=== PATIENT | female | born 1990 | race Caucasian/White ===

== ENCOUNTER 2023-12-19 19:19 | Outpatient (CLI) | payer OTHER, SELFPAY ==
--- NOTE | 2023-12-19 20:30 | P.TNLD_ITS ---
Visit Information Visit Information Date of evaluation: 12/19/23 Primary OB Provider: Angeli Mi On-call OB Provider: Angeli Mi Reason for Evaluation: Yes rupture of membranes Comments/Additional reasons for admission: Rabia Giang is a 33 year old at 38w3d by LMP and confirmed by ultrasound at 15 weeks. She has had a with CNMs only complicated by genital HSV type 1 and has been taking acyclovir since 36 weeks and has not had an outbreak since her initial outbreak years ago. Rabia called to report PROM, clear fluid, at 1800 tonight. Came in for evaluation to triage. Has felt fewer contractions since ROM - before that had may spenser baig contractions for the last few days, more than 50% of the time! After discussion of risks/benefits/options of staying for pitocin augmentation or going home for expectant management, Rabia chose to go home. Vital Signs Vital Signs: BP 131/78 HR: 68 bpm Temp: 36.9 C [facility] Medical History (Updated 12/19/23 @ 20:56 by Angeli Mi CNM, JAIDEN) Vasovagal syncope Anxiety Depression Family History (Updated 12/19/23 @ 20:58 by Angeli Mi CNM, JAIDEN) Mother Hypertension Grandfather Cancer Father Depression Sister FH: mental illness Other Osteoporosis Social History (Updated 12/19/23 @ 21:00 by Angeli Mi CNM, JAIDEN) marital status: number of children: 1 household members: spouse and children lives independently: Yes caregiver/support person: No housing: house pets and animals: Yes education level: master's degree occupational status: employed current occupational exposures/hazards: No special gemini needs: No Smoking Status: Never smoker second hand exposure: No alcohol intake: former substance use type: does not use Review of Systems Review of Systems Narrative: Negative except as mentioned in HPI. Objective Labs Labs: Amnisure positive. Evaluation Evaluation Baseline heart rate: 130 Variability: Moderate (11-25) monitor accelerations: Present Monitor Decelerations: Absent Contraction Frequency (minutes): 0 (irregular, painless) Uterine Contraction Intensity: Mild Category of Tracing: Reactive Non-invasive Membranes Rupture Test: positive Diagnosis, Plan/Disposition Final Diagnosis (1) Supervision of normal in third trimester: Status: Acute Problem details: GBS negative, Blood type O positive (2) HSV-1 infection: Status: Acute Problem details: Genital HSV: Has been taking acyclovir since 36 weeks. (3) PROM (premature rupture of membranes): Status: Acute (4) NST (non-stress test) reactive: Status: Acute Plan/Disposition Plan: Perform Amnisure. NST. Review options including active management with pitocin or expectant management either here in hospital or at home. Reviewed risks of infection both prior to and after ROM, and how those risks increase with PROM. After discussion of risks and benefits of each option, Rabia chose to go home tonight. Reviewed currently normal temperature, maternal HR and HR. Recommend taking temperature q 4-6 hours at home. Nothing in vagina until returns to hospital. Bedside ultrasound done to confirm vertex presentation. Plan to talk by phone at 0600, 12 hours after PROM, to make a plan of care. Recommend returning to hospital for pitocin if no active labor by 12-24 hours. Discharge home.
[2023-12-19 20:45] VITALS: BP 132/76
== END 2023-12-19 20:35 | disposition home or self-care (01) ==
LOC: OB 12-22 06:19
PROVIDERS: PCP Nurse Practitioner Family; Referring Provider Advanced Practice Midwife; Visit Provider Advanced Practice Midwife
DX: O42.92 Full-term premature rupture of membranes, unspecified as to length of time between rupture and onset of labor (principal); O98.513 Other viral diseases complicating pregnancy, third trimester; B00.89 Other herpesviral infection; Z3A.38 38 weeks gestation of pregnancy
CPT/HCPCS: 59025; 84112; G0378; G0379

== ENCOUNTER 2023-12-20 01:46 | Inpatient (IN) | payer OTHER, SELFPAY ==
[2023-12-20 02:25] LABS: Add Manual Diff / Slide Review NO; Basophils Absolute Auto 100 /uL (0-100); Basophils Percent Auto 1.2 % (0-2); Eosinophils Absolute Auto 100 /uL (0-450); Eosinophils Percent Auto 0.6 % (2-4); Hemoglobin 12.8 g/dL (12.0-16.0); Lymphocytes Absolute Auto 2100 /uL (1100-4500); Lymphocytes Percent Auto 18.7 % (25-40); Mean Corpuscular HGB Conc 34.5 % (30-36); Monocytes Absolute Auto 600 /uL (0-900); Monocytes Percent Auto 5.2 % (3-14); Neutrophils Absolute Auto 8200 /uL (1500-7000); Neutrophils Percent Auto 74.3 % (50-75); Platelet Count 227 X10^3/uL (150-400); Red Blood Cell Count 4.26 X10^6/uL (4.0-5.2); Red Cell Distribution Width 14.2 % (11.6-14.8); White Blood Cell Count 11.1 X10^3/uL (4.5-11.0)
[2023-12-20] MEDS: LACTATED RINGERS 1,000 ML 100 ML IV ×3 (02:44→12:42)
--- NOTE | 2023-12-20 04:01 | PM.AN.REGBLK ---
Regional Block Pre-procedure Procedure: Continuous Lumbar Epidural for L&D Attending OB provider: Angeli Mi PMH/ROS narrative: Healthy at 38+3 requesting LUCIA for labor pain. Hx: No personal or family history of anesthesia problems. PSH/Anesthesia history narrative: Previous vaginal delivery with epidural x 2. First epidural was one sided, which was replaced and was still partially effective/one sided per patient. ASA Class: II Labs: Hct 37.0 % (36-46) 12/20/23 02:15 Plt Count 227 X10^3/uL (150-400) 12/20/23 02:15 Medications: Current Medications Generic Name Dose Route Start Last Admin Trade Name Freq PRN Reason Stop Dose Admin Calcium Carbonate 1,000 mg 12/20/23 01:52 Calcium Carbonate 500 Mg Tab PO Q2HR PRN Dyspepsia Carboprost Tromethamine 250 mcg 12/20/23 01:52 Carboprost 250 Mcg/Ml Ampul IM Q90M PRN Bleeding Diphenhydramine HCl 25 mg 12/20/23 03:58 Diphenhydramine 50 Mg/Ml Vial IV 12/21/23 03:59 Q3HR PRN PRURITUS Fentanyl 50 mcg 12/20/23 01:52 Fentanyl 100 Mcg/2 Ml Inj IV Q1H PRN Pain, Moderate (4-6) Oxytocin/Lactated Ringer's 30 unit in 500 mls @ 200 mls/hr 12/20/23 01:52 Oxytocin Premix IV CONT PRN Bleeding Protocol Tranexamic Acid 1,000 mg/ 100 mls @ 600 mls/hr 12/20/23 01:52 Sodium Chloride IV NOW PRN Bleeding Lactated Ringer's 1,000 mls @ 100 mls/hr 12/20/23 02:00 Lactated Ringers IV 12/20/23 11:59 CONT SKYE Lidocaine HCl 20 ml 12/20/23 01:52 Lidocaine 1% 20 Ml INJ INTRA-OP PRN Post Delivery Methylergonovine Maleate 0.2 mg 12/20/23 01:52 Methylergonovine 0.2 Mg Tablet PO Q6HR PRN Heavy Bleeding Methylergonovine Maleate 0.2 mg 12/20/23 01:52 Methylergonovine 0.2 Mg/Ml Vial IM NOW PRN Bleeding Mineral Oil 30 ml 12/20/23 01:52 Mineral Oil 30 Ml Udc TOP PRN PRN Version Misoprostol 800 mcg 12/20/23 01:52 Misoprostol 200 Mcg Tablet WA NOW PRN Bleeding Misoprostol 400 mcg 12/20/23 01:52 Misoprostol 200 Mcg Tablet SL NOW PRN Bleeding Naloxone HCl 0.2 mg 12/20/23 01:52 Naloxone 0.4 Mg/Ml Vial IV Q2MIN PRN Opiate Reversal Naloxone HCl 0.4 mg 12/20/23 03:58 Naloxone 0.4 Mg/Ml Vial IV Q2MIN PRN Opiate Reversal Ondansetron HCl 4 mg 12/20/23 01:52 Ondansetron 4 Mg/2 Ml Inj IV Q4HR PRN Nausea And Vomiting Ondansetron HCl 4 mg 12/20/23 03:58 Ondansetron 4 Mg/2 Ml Inj IV 12/21/23 03:59 Q6HR PRN Nausea Oxytocin 10 unit 12/20/23 01:52 Oxytocin 10 Unit/Ml Vial IM NOW PRN Bleeding Allergies: Allergies Allergy/AdvReac Type Severity Reaction Status Date / Time No Known Drug Allergies Allergy Verified 12/20/23 03:30 Procedure Insertion date: 12/20/23 Insertion time: 03:35 Prep/Local: 1% lidocaine (3mL to interspace, and chlorhexadine used for skin prep) Interspace: L3/L4 Patient position: sitting Needle: 18 gauge Gaurav Loss of resistance with: saline BRUNILDA at (cm): 7 Catheter placed at SKIN (cm): 12 Catheter in SPACE (cm): 5 Insertion: No CSF, No Blood, Yes Paresthesia with insertion, No Paresthesia with injection and No Test dose reaction Initial Medications TEST DOSE time: 03:38 TEST DOSE: 1.5% lidocaine with epinephrine 1:200k (mL): 3 BOLUS DOSE time: 03:49 BOLUS DOSE (mL): 8 BOLUS DOSE med: other (8mL of infusate via epidural given as bolus dose. Prior to test and bolus doses, 0.5mL bupivacaine was placed intrathecal via CSE technique.) Infusion INFUSION: 0.125% bupivacaine and with fentanyl 2 mcg/mL Initial rate (mL/hr): 10 Subsequent interventions: 1615: Ephedrine 15mg + 10mg, zofran 4mg given IV for nausea and hypotension. Post-procedure Anesthesia date START: 12/20/23 Anesthesia time START: :25 Anesthesia date END: 12/20/23 Anesthesia time END: 13:18 Post-procedure Anesthesia Assessment: Yes CV function: HR/BP stable, Yes Resp function: RR/sat/airway adequate, Yes Post-op hydration adequate, Yes Pain control adequate, Yes Nausea & vomiting absent, Yes Temperature > 36 C and Yes Mental status appropriate
[2023-12-20 04:54] VITALS: BP 121/70
--- NOTE | 2023-12-20 05:26 | P.HPOB_ITS ---
OB HPI Date/Time Date of admission: 12/20/23 Date Patient Seen: 12/20/23 Time Patient Seen: 05:27 History of Present Condition Chief complaint: : 2 Para: 1 Estimated Date of Delivery: 12/30/23 Estimated Gestational Age (weeks): 38w4d Narrative: Rabia Giang is a 33 year old female at 38w4d by LMP and confirmed by 1st trimester ultrasound at 11 weeks. She reported PROM at 1800 which was confirmed with amnisure, and then went home for expectant management. She presented back to the labor unit at 0143 with painful contractions, was admitted at 3 cm and requested an epidural. She is now resting comfortably and sleeping. Her and MIL are with her. Rabia had an uncomplicated with CNMs. She has a history of HSV-1 genital with one outbreak at age 19. Is taking acyclovir for prophylaxis. She is GBS negative. History of Present care: good care, initiated at week # (11), number of visits (8) and pounds weight gain (24) Dating criteria: LMP confirmed by 1st trimester US Ultrasounds: normal 1st trimester US and normal mid trimester US Medical complications: other (Genital HSV-1) Preadmission Labs Blood type: O (+) positive -: Antibody screen: negative, Cystic fibrosis screen: unknown, GBS status: negative, HBsAG: negative, HIV: negative, HSV 1: unknown, HSV 2: unknown and RPR/VDLR: negative -: Chlamydia screen: not detected and Gonorrhea screen: not detected -: Rubella: immune and Varicella: immune HCT: 37.8 HCAB: negative Cell-free DNA: Declined. 1 hr GTT: 98 Prior (ies) History: : VAVB at 40 weeks, epidural, very long labor, male, 7#8oz at [facility]. Evaluation Evaluation Baseline heart rate: 120 Variability: Moderate (11-25) monitor accelerations: Present Monitor Decelerations: Late (x 1 min after epidural placed) Contraction Frequency (minutes): 2 (2-6) Status: Category ll Dilation (cm): 4 Effacement (%): 70 Dilation: 1-2 cm Effacement: 60-70% station: -2 Position of cervix: mid Consistency: medium Palacio score: 6 [facility] Medical History (Updated 12/19/23 @ 20:56 by Angeli Mi CNM, ARNP) Vasovagal syncope Anxiety Depression Family History Mother Hypertension Grandfather Cancer Father Depression Sister FH: mental illness Other Osteoporosis Social History marital status: number of children: 1 household members: spouse and children lives independently: Yes caregiver/support person: No housing: house pets and animals: Yes education level: master's degree occupational status: employed current occupational exposures/hazards: No special gemini needs: No Smoking Status: Never smoker second hand exposure: No alcohol intake: former substance use type: does not use Meds Home Medications and Allergies Allergies Allergy/AdvReac Type Severity Reaction Status Date / Time No Known Drug Allergies Allergy Verified 12/20/23 03:30 Review of Systems Review of Systems Narrative: All normal except as mentioned in HPI. OB Exam Vital signs Blood Pressure: 120/66 Pulse Rate: 72 Respiratory Rate: 16 Temperature: 98 F Objective Labs 12/20/23 02:15 Labs: Laboratory Results - last 24 hr 12/20/23 02:15 WBC 11.1 H RBC 4.26 Hgb 12.8 Hct 37.0 MCV 87.0 MCH 30.0 MCHC 34.5 RDW 14.2 Plt Count 227 Neut % (Auto) 74.3 Lymph % (Auto) 18.7 L Twiggs % (Auto) 5.2 Eos % (Auto) 0.6 L Baso % (Auto) 1.2 Neut # (Auto) 8200 H Lymph # (Auto) 2100 Twiggs # (Auto) 600 Eos # (Auto) 100 Baso # (Auto) 100 Blood Type O Positive Antibody Screen Negative Assessment and Plan Assessment and Plan Assessment and Plan narrative: at 38w4d by LMP GBS neg Blood type O pos HSV-1, genital, adequate prophylaxis PROM x 11 hours FHR Cat 2 Admit to L&D. Epidural as desired. Continuous monitoring. Anticipate NSVB. Time-Based Coding :: [TOTAL MINUTES] spent with patient and on the chart (including review of chart, obtaining history, exam, reviewing outside data, placing orders, documenting exam and treatment plan, and counseling patient) on [DATE].
[2023-12-20 05:46] VITALS: BP 120/66; PULSE 72; RESP 16; TEMP 36.6
[2023-12-20] MEDS: FENT 2MCG/ML BUPIV 0.125% EPI 200 MCG/100 ML PLAST..BAG 10 MCG EPIDURAL (09:11)
[2023-12-20] MEDS: OXYTOCIN 10 UNIT/ML VIAL IM (13:27)
--- NOTE | 2023-12-20 13:51 | PM.OBPNLAB ---
Date/Time Date Patient Seen: 12/20/23 Time Patient Seen: 11:15 Pain Control Pain control: epidural Pelvic Exam Dilation (cm): 10 Effacement (%): 100 station: +2 Amniotic membrane status: Ruptured Contractions Contraction frequency (min): 4 (3-5) Contraction duration (min): 1 Contraction pattern: Regular Contraction intensity: Strong/Firm Status status: Category ll Heart Rate Baseline: 140 Monitor Accelerations: Present Monitor Decelerations: Early and Variable Monitor Variability: Moderate Comments: Maternal VS: BP 122/68 HR 94 bpm Temp: 36.6 C Assessment and Plan Comments: at 38w4d by LMP GBS neg PROM x 17 hours, clear fluid Afebrile FHR Cat 2 2nd stage labor Begin pushing. Anticipate NSVB.
--- NOTE | 2023-12-20 13:55 | P.PCNOB_ITS ---
Events: Other (Normal with PROM) Labor & Delivery Delivery date: 12/20/23 Intrapartal Events: None Delivery monitor: external FHT Route of delivery: L&D Laceration Description: None Quantitative Blood Loss: 200 Anesthesia Type: Epidural Narrative: Labor progressed well while Rabia dozed off and on with epidural. Approx 1100, she felt the contractions and pressure and was found to be complete. She pushed effectively during 2nd stage for just under an hour. FHR was Cat 1 throughout 2nd stage with baseline 160 bpm. NSVB of baby at 1318, shoulders delivered easily into hands of her father, Bernardino. Baby was placed on maternal by Bernardino when Rabia was ready to receive her. Rabia tearful that her baby has arrived without interventions. Apgars 9/9. They remained skin to skin while cord was cut and placenta was delivered. Placenta delivered spontaneously with maternal efforts and appeared to be intact. Pitocin 10 mu given for modified AMTSL. 3 vessel cord double clamped and cut by Bernardino at 9 minutes of life after cord pulsing had stopped. Cord blood collected for blood typing. Perineum inspected and found to be intact. Blood loss measured and estimated loss is 200 mL. Mom and baby left stable and is being initiated. Rabia, Bernardino and Jody (grandma) are thrilled to meet their baby. Angeli HWANG, CNMey, IBCLC [place] Baby 1: Infant gender: Female Presentation: vertex Position: Left Occiput Anterior Placenta delivery description: Spontaneous Cord Vessel Description: 3 Vessels score (1 min): 9 score (5 min): 9 weight: 3.173 kg Plan for aftercare: Routine care
[2023-12-20] MEDS: KETOROLAC 30 MG/ML VIAL IV (16:33)
[2023-12-20] MEDS: ACETAMINOPHEN 325 MG TABLET 650 MG PO (18:29)
[2023-12-20] MEDS: HYDROCODONE/ACET 5/325 TABLET 1 TAB PO (20:43)
[2023-12-20] MEDS: IBUPROFEN 600 MG TABLET PO (22:24)
[2023-12-21] MEDS: ACETAMINOPHEN 325 MG TABLET 650 MG PO ×2 (00:33→14:52)
[2023-12-21] MEDS: OXYCODONE IR 10 MG TABLET PO (01:40)
[2023-12-21] MEDS: IBUPROFEN 600 MG TABLET PO ×3 (04:17→17:35)
--- NOTE | 2023-12-21 06:00 | DI.RAD.S_ITS ---
PROCEDURE: XR HIP W PEL IF DONE RT 2V INDICATIONS: pain TECHNIQUE: AP pelvis with lateral view(s) of the right hip(s). COMPARISON: None. FINDINGS: Bones: No fractures or dislocations. Pelvic ring appears intact. No suspicious bony lesions. Soft tissues: The visualized bowel gas pattern is normal. No suspicious soft tissue calcifications. IMPRESSION: No acute bony abnormality. Dictated by: Eric Brown M.D. on 12/21/2023 at 9:10 Approved by: Eric Brown M.D. on 12/21/2023 at 9:11
[2023-12-21] MEDS: LANOLIN OINT 7 GM 1 APPLIC TOP (11:42)
--- NOTE | 2023-12-21 16:09 | PT.IIE ---
Medical History (Last Updated 12/19/23 @ 20:56 by Angeli Mi, CNM, DIRECTOR OF PEOPLE) Anxiety Depression Vasovagal syncope Physical Therapy Inpatient Evaluation/Re-Eval M1 PT/OT-IP Prior Functional Status Start: 12/21/23 15:35 Freq: NEEDED Status: Active Protocol: Document 12/21/23 14:54 LRN (Rec: 12/21/23 16:09 LRN [id number]) Medical Review Prior Functional Status Medical History Reviewed Yes Communication Normal Mobility and Gait Normal Activities of Daily Living and IADL's Independent. Prior Functional Level (Other details) Independent Social History Household Members spouse,children Living Arrangements House Number of Floors (Floors) One Floor Number of Stairs To Enter/Railing? 2 small steps Home Environment Standard Height Toilet Additional Social History Comment Master's Degree. M2 PT-IP Current Condition Start: 12/21/23 15:35 Freq: NEEDED Status: Active Protocol: Document 12/21/23 14:54 LRN (Rec: 12/21/23 16:09 LRN [id number]) Physical Therapy Current Condition Current Condition Evaluation Date 12/21/23 Treatment Diagnosis Impaired mobility Onset Date 12/21/23 M3 PT-IP Subjective Start: 12/21/23 15:35 Freq: NEEDED Status: Active Protocol: Document 12/21/23 14:54 LRN (Rec: 12/21/23 16:09 LRN [id number]) Subjective Physical Therapy Visit Type Type Initial Evaluation Visit Start Time 14:54 Visit Stop Time 15:35 Physical Therapy Visit Comments Patient Comments Pt c/o R groin pain with asymmetrical movement of legs and with just movement of L leg. Patient Goals Decrease R groin pain with mobilization. Therapy Pain Assessment Pain When Pain Assessed WBing/mvmt Pain Present Pain Present Pain Reported M4 PT-IP Mobility and Gait Start: 12/21/23 15:35 Freq: NEEDED Status: Active Protocol: Document 12/21/23 14:54 LRN (Rec: 12/21/23 16:09 LRN [id number]) PT-Bed Mobility Assessment Rolling Type of Rolling Log Rolling Level of Assist Minimal Assistance Supine to Sit Supine to Sit Minimal Assistance Sit to Supine Sit to Supine Contact Guard Assistance Scooting Scooting to Edge of Bed Independent Scooting Up and Down in Bed Independent PT-Transfer Assessment Sit to and From Stand Sit to and from Stand Standby Assistance Equipment Transfer Assistive Device Standard Walker Comments Mobility Comments Sit<>stand with much v cuing and SBA w/FWW/Pillow sqeezing between knees. Gait Assessment Gait Gait Assistance Required: Standby Assistance Distance (Feet) 4 Assistive Devices Assistive Device Gait Belt,Front Wheeled Walker Orthotic/Prosthetic Devices or Brace: Yes Gait Deviations General Gait Pattern Antalgic,Decreased Stride Length,Decreased Feet Clearance,Narrow Based Gait Factors Limiting Gait Function Factors Limiting Gait Function Decreased Activity Tolerance, Decreased Strength,Limited Range of Motion,Pain,Poor Balance PT-Balance Assessment Sitting Balance and Reactions Static Sitting Balance Ability Good Dynamic Sitting Balance Ability Good Standing Balance and Reactions Static Standing Balance Ability Fair Dynamic Standing Balance Ability Fair Device Used FWW M5 PT-IP Objective Assessments Start: 12/21/23 15:35 Freq: NEEDED Status: Active Protocol: Document 12/21/23 14:54 LRN (Rec: 12/21/23 16:09 [facility] [id number]) Orientation Orientation/Cognition Level of Alertness Alert Orientation Name,Day of Week,Situation Language Function Ability No Deficits Noted Safety Awareness Understands Safety Issues Memory Description No Deficits Noted Gross Range of Motion Upper Extremity ROM Assessment Within Functional Limits Lower Extremity ROM Assessment Bilaterally Impaired Impairments Minimal functional mvmt needed due to R groin pain. Strength Upper Extremity Strength Assessment Within Functional Limits Lower Extremity Strength Hip 3 Knee 3 Ankle 4 Comments Strength Comments Strength assessment as based on mvmt of legs at same time. Sensation Assessment Sensation Gross Sensation WNL Other Assessments Other Other Assessments Posterior rot L innominate/ Anterior rot R innominate M6 PT-IP Treatment Start: 12/21/23 15:35 Freq: NEEDED Status: Active Protocol: Document 12/21/23 14:54 LRN (Rec: 12/21/23 16:09 N [id number]) Physical Therapy Treatment Exercises Exercises Heel Slides Education Education Provided Weight Bearing Status Equipment Issued Equipment Type and Company Pillow used between legs for marty hip AD while transferring in/out of bed and while in bed . Use of FWW for gait with pt using UE's to unweight body from LE's during gait. Other Treatments Other Treatment Performed JMT L innominate to correct posterior rotation. I/S for pt to move legs together and pillow squeeze with log roll transfer/sit<> stand. I/S pt in TA tightening. I/S pt in use of MH and/or ice to R groin for pain, not directly on skin. Training for use of FWW for gait. Recommended pt breathe through exercise and to place chair along route to get into home for pt to rest as needed while walking into home from car. M7 PT-IP Assessment and Plan Start: 12/21/23 15:35 Freq: NEEDED Status: Active Protocol: Document 12/21/23 14:54 LRN (Rec: 12/21/23 16:09 LRN [id number]) PT Summary Assessment and Plan Potential Rehabilitation Potential Good Status of Condition at Evaluation Evolving Summary Impairments Pain,ROM,Strength,Balance,Bed Mobility,Transfers,Gait, Activity Tolerance Progress Towards Goals Safe For Discharge Assessment Summary Pt is a 33 yo female post- day 1 for vaginal of ~7# w/o complications. Pt presents with R groin pain due to anteriorly rotated R innominate/posteriorly rotated L innominate, poor core and pelvic stability as expected post . Pt has good upper body strength and was able to transfer roll in bed ( to the right) and transfer log roll method to sit, then to stand with minimal assist, primarily for guidance and cuing to move LE's together while squeezing knees together . The pt was able to mobilize out of bed and with help of spouse would be safe to go home with use of FWW for gait. Goals Bed Mobility Goal Standby Assistance Transfer Goal Standby Assistance Gait Goal Standby Assistance,Front Wheel Walker Gait Distance 4' Other Goals Correct pelvic obliquity. Days to Meet Goals 1 Frequency of Treatment Frequency Of Treatment Discharge Precautions Brace Soft lumbar brace to be worn with transfers. Weight Bearing Status Weight Bearing Status Full Weight Bearing Recommendations To Nursing Amount of Assist Needed Standby Assistance Discharge Recommendations PT Discharge Recommendations Home with Assistance Other Discharge Recommendations FWW with gait. Log roll technique to get in/ out of bed squeezing pillow between knees. Equipment Needed for Home Before FWW Discharge Transportation Needs at Discharge Private Vehicle
--- NOTE | 2023-12-21 16:10 | PM.OBDS.1 ---
Discharge Providers Provider Date of admission: 12/20/23 01:46 Discharge Date: 12/21/23 Primary care physician: JAIDEN Machado Consults: 12/20/23 01:52 Consult to Anesthesiology Urgent Comment: Consulting Provider: Anesthesiologist Reason for consultation: Epidural 12/21/23 09:53 Consult to Physical Therapy Evaluate & Treat Comment: groin pain preventing walking due to severe pain Physician Instructions: Evaluate and Treat 12/21/23 13:44 Consult to Network Announcer Routine Comment: 12/21/23 15:35 Consult to Physical Therapy Evaluate & Treat Comment: post pain Physician Instructions: Set up FWW for home use Discharge provider: Angeli Mi CNM, ARNP Summary Hospital Course Date Patient Seen: 12/21/23 Time Patient Seen: 16:10 Diagnoses: O80 Hospital Course: Pre-labor rupture of membranes with spontaneous labor, normal vaginal , intact perineum. Epidural used for pain relief during labor. Normal course except for severe groin pain, likely r/to pushing. Unable to ambulate on her own due to pain. X-ray shows Bones: No fractures or dislocations. Pelvic ring appears intact. No suspicious bony lesions. Soft tissues: The visualized bowel gas pattern is normal. No suspicious soft tissue calcifications. IMPRESSION: No acute bony abnormality. Seen by pelvic floor physical therapist and sent home with walker. PT summary: [facility] Discharge Pt is a 33 yo female post- day 1 for vaginal of ~7# infant w/o complications. Pt presents with R groin pain due to anteriorly rotated R innominate/posteriorly rotated L innominate, poor core and pelvic stability as expected post . Pt has good upper body strength and was able to transfer roll in bed ( to the right) and transfer log roll method to sit, then to stand with minimal assist, primarily for guidance and cuing to move LE's together while squeezing knees together . The pt was able to mobilize out of bed and with help of spouse would be safe to go home with use of FWW for gait. Peripartum Data Infant Delivery Method: Natural Vaginal Laceration Description: None Episiotomy description: None [place] 1: Gender: Female Disposition of : home Discharge Diagnosis (1) (normal spontaneous vaginal delivery): Status: Acute (2) Groin injury: Status: Acute (3) Breast feeding status of mother: Status: Acute Status at Discharge Cognitive/behavioral status at discharge: oriented and calm Functional status at discharge: independent ambulation Overall status at discharge: patient is progressing back to baseline Time Spent with Patient Time attestation: Total time spent providing and/or coordinating discharge services: Time spent: Less than 30 minutes Specific discharge activities: discharge teaching Objective Labs 12/20/23 02:15 Exam Vital Signs (past 8 hours): BP: 100/65 HR: 68 bpm RR 17/min Temp: 98.2 F Other: Fundus firm at U-1, midline. Lochia scant Perineum intact with minimal edema Discharge Plan Discharge Plan Patient Disposition: Home Discharge orders & Medications Follow up/Referrals: Cary Gaytan ARNP [Primary Care Provider] - Diet/Activity/Treatments Diet: Diet as Tolerated Diet comment: increase fiber and fluid for stool Activity: low manuel x at least 2 weeks Cold/Heat Therapy: as needed Skin/Wound/Dressing Care Report to your healthcare provider any signs of infection, such as:: chills, fever, increased pain, unusual drainage and unusual redness Visit Report/Discharge Packet Stand Alone Forms: Discharge: Care, Patient Portal/API, Stroke Signs & Symptoms Discharge Data Primary Care Provider: Cary Gaytan
[2023-12-21 16:32] VITALS: BP 120/66; PULSE 72; RESP 17; TEMP 36.6
== END 2023-12-21 17:45 | disposition home or self-care (01) | DRG 806 ==
PROVIDERS: Advanced Practice Midwife; Admitting Provider Nurse Practitioner Obstetrics & Gynecology; PCP Nurse Practitioner Family; Referring Provider Nurse Practitioner Obstetrics & Gynecology; Visit Provider Nurse Practitioner Obstetrics & Gynecology
DX: O42.02 Full-term premature rupture of membranes, onset of labor within 24 hours of rupture (principal); B00.89 Other herpesviral infection; Z37.0 Single live birth; O98.32 Other infections with a predominantly sexual mode of transmission complicating childbirth; O98.513 Other viral diseases complicating pregnancy, third trimester; A60.9 Anogenital herpesviral infection, unspecified; O76 Abnormality in fetal heart rate and rhythm complicating labor and delivery; Z3A.38 38 weeks gestation of pregnancy; O42.92 Full-term premature rupture of membranes, unspecified as to length of time between rupture and onset of labor
CPT/HCPCS: 36415; 59025; 59050; 73502; 84112; 85025; 86850; 86900; 86901; 97140; 97162; G0379; J1885; J2405; J2590